=== PATIENT | male | born 1970 | race Caucasian/White ===

== ENCOUNTER 2016-03-19 07:37 | Inpatient (IN) | payer BC ==
[2016-03-19] MEDS ORDERED: ASPIRIN 325 MG TAB PO ONE (07:48)
[2016-03-19] MEDS ORDERED: ONDANSETRON 4 MG/2 ML VIAL IVP ONE (07:49)
[2016-03-19] MEDS ORDERED: NITROGLYCERIN 0.4 MG BTL SL ONE (07:53)
[2016-03-19] MEDS ORDERED: ASPIRIN 81 MG CHEWABLE TAB PO ONE (07:56)
--- NOTE | 2016-03-19 07:58 | EDPHY ---
H & P Stated Complaint: CP Time Seen by Provider: 03/19/16 07:48 HPI/ROS: CHIEF COMPLAINT: Chest pain HISTORY OF PRESENT ILLNESS: The patient is a 45 year old male presenting with acute onset of chest pain at 2:30am. The patient woke up with diffusely tight chest pain. His pain radiates into his arms, jaw, and back. He began to feel nauseous, went to take a shower, and started vomiting. His pain improves with sitting up. No clear relieving factors. No shortness of breath. No similar history of pain. Pain improved slightly on arrival to the emergency department especially the discomfort in his arms. His pain has slightly improved to a 5/10 now. The patient had a particularly stressful work week last week and took a long weekend. He has been feeling fine for the past few days. REVIEW OF SYSTEMS: Aside from elements discussed in the HPI, a comprehensive 10-point review of systems was reviewed and is negative. PAST MEDICAL HISTORY: Denies hypertension, diabetes, known coronary artery disease, high cholesterol. Family history: Father with PA at age 60. SOCIAL HISTORY: Nonsmoker. aws developer. VITAL SIGNS: Reviewed by me GENERAL: Well-developed, well-nourished, resting comfortably in no respiratory distress. HEENT: Atraumatic. Eyes: No icterus, no injection. Mouth: moist mucous membranes. No erythema or lesions. Neck: supple with no adenopathy. LUNGS: Clear to auscultation bilaterally, no wheezes, rhonchi or rales. CARDIAC: Slightly irregular, no rubs, murmurs or gallops. ABDOMEN: Soft, nontender, nondistended, bowel sounds normal. BACK: No CVA tenderness. EXTREMITIES: No trauma. No edema. Range of motion is normal throughout. NEURO: Alert and oriented, grossly nonfocal. SKIN: Warm and dry, no rash. PSYCHIATRIC: Normal mentation, no agitation. Portions of this note were transcribed by a hospitalist medical director. I personally performed a history, physical exam, medical decision making, and confirmed accuracy of information the transcribed note. - Personal History Current Tetanus/Diphtheria Vaccine: Yes - Medical/Surgical History Hx Asthma: No Hx Chronic Respiratory Disease: No Hx Diabetes: No Hx Cardiac Disease: No Hx Renal Disease: No Hx Cirrhosis: No Hx Alcoholism: No Hx HIV/AIDS: No Hx Splenectomy or Spleen Trauma: No Other PMH: DENIES - Social History Smoking Status: Never smoked Constitutional: Initial Vital Signs O2 Sat (%) 98 03/19/16 07:40 O2 Delivery Mode Room Air O2 (L/minute) 2 Allergies/Adverse Reactions: No Known Allergies Allergy (Unverified 03/19/16 07:40) Home Medications: Medication Instructions Recorded Multivitamins [Multivitamin (*)] 1 each PO DAILY 03/19/16 Medical Decision Making - Diagnostics EKG Interpretation: The 12 lead EKG was interpreted by myself. See hard copy and/or "tracemaster" electronic copy for interpretation: Abnormal T waves in lateral leads, minimal ST elevation in anterior leads, premature atrial complexes. Imaging: Study: X-ray of the chest was obtained. Results: No acute disease. Images were interpreted by the radiologist, Dr. Amin. I viewed the images myself on the PACS system. ED Course/Re-evaluation: The patient received 324mg Aspirin PO. Nitro and IV Zofran was ordered. Patient reports little improvement in his pain with the nitroglycerin. He received morphine. Patient's troponin is elevated at 0.197. Course was discussed with Jorge Estrada from [facility]. Repeat EKG shows no significant ischemic changes. Patient was evaluated by [facility] in the emergency department and was taken to the labor relations consultant. Differential Diagnosis: After history and physical examination, the differential for chest pain was considered, including but not limited to, myocardial ischemia, acute coronary syndrome, pulmonary embolus, chest wall pain, pleural inflammation and pulmonary infectious causes. - Data Points Laboratory Results: Laboratory Results 03/20/16 00:53 03/20/16 00:53 03/20/16 05:32 Creatine Kinase 1436 H IU/L (0-224) CK-MB (CK-2) Fraction 50.40 H ng/mL (0-3.19) CK-MB (CK-2) % 3.5 % (0.0-4.0) Creatine Kinase Interp NEGATIVE (NEGATIVE) Troponin I 26.700 H ng/mL (0-0.034) Medications Given: Discontinued Medications Aspirin (Aspirin) 325 mg PO EDNOW ONE Stop: 03/19/16 07:49 Last Admin: 03/20/16 07:06 Dose: Not Given Aspirin (Aspirin) 324 mg PO EDNOW ONE Stop: 03/19/16 07:57 Last Admin: 03/19/16 08:01 Dose: 324 mg Aspirin Buffered (Aspirin Ec) 325 mg PO ONCALL ONE Stop: 03/19/16 09:35 Last Admin: 03/19/16 11:24 Dose: Not Given Aspirin Buffered (Aspirin Ec) 325 mg PO ONCE ONE Stop: 03/19/16 11:14 Last Admin: 03/19/16 11:49 Dose: Not Given Diazepam (Valium) 5 mg PO ONCALL ONE Stop: 03/19/16 09:35 Last Admin: 03/19/16 11:17 Dose: Not Given Diphenhydramine HCl (Benadryl) 25 mg PO ONCALL ONE Stop: 03/19/16 09:35 Last Admin: 03/19/16 11:17 Dose: Not Given Morphine Sulfate (Morphine) 2 mg IVP EDNOW ONE Stop: 03/19/16 08:32 Last Admin: 03/19/16 08:32 Dose: 2 mg Nitroglycerin (Nitrostat) 0.4 mg SL EDNOW ONE Stop: 03/19/16 07:54 Last Admin: 03/19/16 08:01 Dose: 0.4 mg Ondansetron HCl (Zofran) 4 mg IVP EDNOW ONE Stop: 03/19/16 07:50 Last Admin: 03/19/16 11:11 Dose: Not Given Ticagrelor (Brilinta) 180 mg PO ONCE ONE Stop: 03/19/16 11:14 Last Admin: 03/19/16 11:49 Dose: Not Given Departure - Departure Disposition: [facility] Acute Clinical Impression: Acute coronary syndrome Condition: Serious Report Scribed for: Mague De Souza Report Scribed by: Anca Valentin Date of Report: 03/19/16 Time of Report: 08:03
--- NOTE | 2016-03-19 07:59 | CPEKG ---
Heart Rate: 90 RR Interval: 667 P-R Interval: 180 QRSD Interval: 94 QT Interval: 376 QTC Interval: 460 P [place]: 37 QRS [place]: -24 T Wave [place]: 118 EKG Severity - ABNORMAL ECG - EKG Impression: SINUS RHYTHM EKG Impression: MULTIPLE ATRIAL PREMATURE COMPLEXES EKG Impression: BORDERLINE LEFT AXIS DEVIATION EKG Impression: ABNORMAL T, CONSIDER ISCHEMIA, LATERAL LEADS EKG Impression: MINIMAL ST ELEVATION, ANTERIOR LEADS Electronically Signed By: Mague De Souza 19-Mar-2016 15:12:39
[2016-03-19 08:07] LABS: % IMMATURE GRANULYOCYTES 0.3 % (0.0-1.1); ABSOLUTE IMMATURE GRANULOCYTES 0.03 10^3/uL (0.00-0.10); ADD DIFF? NO; ADD MORPH? NO; ADD SCAN? NO; ATYPICAL LYMPHOCYTE FLAG 0 (0-99); FRAGMENT RBC FLAG 0 (0-99); HEMATOCRIT 44.4 % (40.0-51.0); HEMOGLOBIN 15.3 g/dL (13.7-17.5); LEFT SHIFT FLG 0 (0-99); LIPEMIA HEMOLYSIS FLAG 90 (0-99); MEAN CELL HEMOGLOBIN 31.8 pg (27.9-34.1); MEAN CELL HEMOGLOBIN CONCENTR. 34.5 g/dL (32.4-36.7); MEAN CELL VOLUME 92.3 fL (81.5-99.8); MEAN PLATELET VOLUME 9.4 fL (8.7-11.7); PLATELET CLUMPS FLAG 0 (0-99); PLATELET COUNT 228 10^3/uL (150-400); RED BLOOD CELL COUNT 4.81 10^6/uL (4.40-6.38); RED CELL DISTRIBUTION WIDTH 12.5 % (11.5-15.2)
[2016-03-19 08:34] LABS: ALANINE AMINOTRANSFERASE 80 IU/L (21-72); ALBUMIN 4.2 g/dL (3.5-5.0); ALKALINE PHOSPHATASE 52 IU/L (38-126); ANION GAP 12 mEq/L (8-16); ASPARTATE AMINOTRANSFERASE 59 IU/L (17-59); BILIRUBIN,TOTAL 0.7 mg/dL (0.1-1.4); BILIRUBIN-CONJUGATED 0.2 mg/dL (0.0-0.5); BILIRUBIN-UNCONJUGATED 0.5 mg/dL (0.0-1.1); CALCIUM 9.4 mg/dL (8.5-10.4); CARBON DIOXIDE 25 mEq/l (22-31); CHLORIDE 106 mEq/L (97-110); CREATININE 0.8 mg/dL (0.7-1.3); GLOMERULAR FILTRATION RATE > 60; GLUCOSE 119 mg/dL (70-100); POTASSIUM 4.3 mEq/L (3.5-5.2); SODIUM 143 mEq/L (134-144); TOTAL PROTEIN 7.4 g/dL (6.3-8.2)
[2016-03-19 08:52] LABS: TROPONIN I 0.197 ng/mL (0-0.034)
--- NOTE | 2016-03-19 09:05 | CPEKG ---
Heart Rate: 70 RR Interval: 857 P-R Interval: 172 QRSD Interval: 90 QT Interval: 400 QTC Interval: 432 P [place]: 23 QRS [place]: -27 T Wave [place]: 77 EKG Severity - OTHERWISE NORMAL ECG - EKG Impression: SINUS RHYTHM EKG Impression: BORDERLINE LEFT AXIS DEVIATION EKG Impression: ST ELEV, PROBABLE NORMAL EARLY REPOL PATTERN Electronically Signed By: Mague De Souza 19-Mar-2016 15:12:15
--- NOTE | 2016-03-19 09:13 | DX ---
PA and lateral chest History: Chest pain for 7 hours. Comparison: None available. Findings: Lung volumes are low. The lungs are clear. There is no pneumothorax or pleural effusion. The heart and pulmonary vasculature are normal. Degenerative changes are present in the spine with mi ld anterior height reduction of several adjacent mid thoracic vertebral bodies, possibly congenital o r less likely posttraumatic. Impression: No acute findings in the chest.
[2016-03-19] MEDS ORDERED: TEMAZEPAM 15 MG CAP PO PRN (09:34)
[2016-03-19] MEDS ORDERED: DIAZEPAM 5 MG TAB PO ONE (09:34)
[2016-03-19] MEDS ORDERED: ACETAMINOPHEN 325 MG TAB PO PRN (09:34)
[2016-03-19] MEDS ORDERED: NITROGLYCERIN 0.4 MG BTL SL PRN (09:34)
[2016-03-19] MEDS ORDERED: ASPIRIN EC 325 MG TAB PO ONE ×2 (09:34→11:13)
[2016-03-19] MEDS ORDERED: diphenhydrAMINE 25 MG CAP PO ONE (09:34)
[2016-03-19] MEDS ORDERED: LIDOCAINE 1% 30 ML SDV ONE (09:36)
[2016-03-19] MEDS ORDERED: fentaNYL 100 MCG/2 ML INJ ONE ×2 (09:36→10:07)
[2016-03-19] MEDS ORDERED: HEPARIN 10,000 UNIT/10 ML MDV ONE (09:37)
[2016-03-19] MEDS ORDERED: IOPAMIDOL (ISOVUE-370) 150 ML BTL IV ONE ×2 (09:37→10:17)
[2016-03-19] MEDS ORDERED: MIDAZOLAM 2 MG/2 ML VIAL ONE ×2 (09:37→10:07)
[2016-03-19] MEDS ORDERED: VERAPAMIL 5 MG/2 ML VIAL ONE (09:37)
[2016-03-19] MEDS ORDERED: BIVALIRUDIN 250 MG/5 ML VIAL IV ONE (09:39)
[2016-03-19] MEDS ORDERED: NITROGLYCERIN 1,500 MCG/15 ML VIAL MISC ONE (09:44)
[2016-03-19] MEDS ORDERED: NS 1,000 ML IV SCH (09:45)
[2016-03-19] MEDS ORDERED: ATROPINE SULFATE 1 MG/10 ML SYR ONE (09:45)
[2016-03-19 09:58] LABS: CHOLESTEROL 253 mg/dL (140-200); CHOLESTEROL/HDL RATIO 4.96 RATIO (1.00-4.97); HIGH DENSITY LIPOPROTEIN 51 mg/dL (40-65); LDL/HDL RATIO 3.39 RATIO (1.00-3.64); LOW DENSITY LIPOPROTEIN 173 mg/dL (70-100); NON-HIGH DENSITY LIPOPROTEIN 202 mg/dL (90-129); TRIGLYCERIDE 149 mg/dL (40-150); VERY LOW DENSITY LIPOPROTEINS 29 mg/dL (8-25)
[2016-03-19] MEDS ORDERED: DOPamine/DEXTROSE/250 ML BAG IV ONE (10:18)
[2016-03-19] MEDS ORDERED: ONDANSETRON 4 MG/2 ML VIAL ONE (10:37)
[2016-03-19] MEDS ORDERED: TICAGRELOR 90 MG TAB PO ONE ×2 (10:47→11:13)
[2016-03-19] MEDS ORDERED: HYDROCODONE/APAP 5/325 TAB PO PRN (11:13)
[2016-03-19] MEDS ORDERED: ATROPINE SULFATE 1 MG/10 ML SYR IVP PRN (11:13)
[2016-03-19] MEDS ORDERED: OXYCODONE/APAP 5/325 TAB PO PRN (11:13)
[2016-03-19] MEDS ORDERED: ONDANSETRON 4 MG/2 ML VIAL IVP PRN (11:13)
--- NOTE | 2016-03-19 11:40 | GCON ---
[f rep st] CONSULTATION CARDIOLOGY CONSULTATION DATE OF CONSULTATION: 03/19/2016 REASON FOR CONSULTATION: Ongoing chest pressure. HISTORY OF PRESENT ILLNESS: The patient is a 45-year-old male reporting no significant history of coronary artery disease. 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 Reporting taking the day off on Saturday, taking a long weekend, reporting that he had been feeling fine Saturday and Saturday, going to bed with no problems. Reporting waking up this morning at 2:30 with a midsternal chest pressure that he reports with radiation into his arms and neck, initially reporting it at 7 to 8/10. He attempted to change positions, without any improvement in symptoms. He finally decided to get up, took a shower. At that point, he became nauseous, had a couple of episodes of emesis, and from that point he decided he should come to the Emergency Department for further evaluation. Upon arrival, initial electrocardiogram did show sub mm ST elevation in anterior septal leads with flattened to inverted T-waves in lateral leads. He was given 2 doses of sublingual nitroglycerin which he reported did partially relieve his symptoms, down to a 2/10, but at the time of my examination still reporting some chest heaviness midsternal with "tingling" in both arms. No further jaw pressure or pain. Initial troponin in the Emergency Department was 0.197. At that point, we were called for consultation. The patient reports he has been in his normal state of health. Denies of any recent fevers, chills, or night sweats. Denies of any history of hypertension, smoking history. Does not know what his cholesterol status is, and reports a significant family history of father having an TX in his late 50s/ early 60s. He denies of any palpitation, orthopnea, PND, edema, rapid weight gain, near-syncope or syncopal events. Denies of any symptoms suggestive of TIA or CVA. PAST MEDICAL HISTORY: Patient reports hernia. Genital herpes PAST SURGICAL HISTORY: Patient reports hernia repair surgery, right side, 3 years ago. SOCIAL HISTORY: He is a web software engineer. He is not . He is a nonsmoker. Occasional alcohol use. Denies of any illicit drug use. FAMILY HISTORY: Patient reports father with TX at age between early 50s/late 60s. Still alive. Reports 3 siblings that are still alive and well. Mother alive and well. ALLERGIES: Patient has no known drug allergies. MEDICATIONS: At home: The patient reports he is currently on no medications at home. REVIEW OF SYSTEMS: A 10-point review of systems was done on this patient. All negative, except as mentioned above. PHYSICAL EXAMINATION: GENERAL APPEARANCE: Medium-built, well-groomed, male. He is alert oriented to person, place, time, and situation. Appears to have mild discomfort with chest pressure. VITAL SIGNS: Blood pressure 147/98, heart rate 75, sinus rhythm with PACs. On the monitor, respirations 18, saturating 98% on 2 L nasal cannula. Temperature 36.9 degree Celsius. HEENT: Head is normocephalic. Lips and tongue are pink and moist. No signs of cyanosis. Conjunctivae pink. NECK: Trachea is midline, +2 carotid pulses bilateral, no auscultated bruits, no jugular vein distention. RESPIRATORY: Lungs are clear to auscultation, no rhonchi, rales or wheezes, no accessory muscle use, no intercostal muscle retraction noted. CARDIAC: Regular rate, regular rhythm. S1, S2. No S3, S4 rubs or murmurs noted. ABDOMEN: Soft, nontender, bowel sounds in 4 quadrants, no organomegaly, no palpable masses. SKIN: [place], warm, dry, no cyanosis, no clubbing, no peripheral edema. VASCULAR: +2 carotids bilateral, +2 radials bilateral, +2 posterior tibial pulses bilateral. NEURO: Cranial nerves II through XII grossly intact. LABORATORIES: WBC 11.28, hemoglobin 15.3, hematocrit of 44.4, platelet count 228. Sodium 143, potassium 4.3, chloride 106, CO2 25, BUN 7, creatinine 0.8, glucose 119. Calcium 9.4, total bilirubin 0.7, AST 59, ALT 80, alkaline phosphate 52. Troponin 0.197. Total protein 7.4, albumin 4.2. STUDIES: Initial electrocardiogram as mentioned above. Chest x-ray shows no acute cardiopulmonary distress. Repeated electrocardiogram after nitroglycerin: Sinus rhythm, Sub mm ST elevation in anterior leads, with more flattened lateral leads in comparison to arrival EKG.. ASSESSMENT AND PLAN: A 45-year-old male reporting onset of chest pressure with radiation to arms and jaw with reported episodes of nausea and diaphoresis, no significant cardiac risk factors, except father having myocardial infarction in his late 50s/early 60s. Abnormal electrocardiogram as mentioned above. Mildly positive troponin. At this time, after discussing with Dr. Dozier, it is felt best that the patient be further evaluated for cardiac ischemia by coronary angiogram. Risks and benefits of this procedure were explained to the patient. He verbalizes understanding and he is wanting to proceed. He has had nothing to eat, no solid food, since 8 o'clock last night. He has had 2 small doses of water, with which he reports he has vomited up. He will be take to the Cardiac Catheterization Laboratory urgently. Further recommendations will come post- testing. CODE STATUS: Patient reports he is a full code. Thank you for this consultation. We are glad to follow along with you. /[id number]/MODL MTDD
--- NOTE | 2016-03-19 11:42 | CPEKG ---
Heart Rate: 75 RR Interval: 800 P-R Interval: 168 QRSD Interval: 90 QT Interval: 400 QTC Interval: 447 P [place]: 48 QRS [place]: -42 T Wave [place]: 36 EKG Severity - ABNORMAL ECG - EKG Impression: SINUS RHYTHM EKG Impression: PROBABLE INFERIOR INFARCT EKG Impression: COMPARED TO EARLIER EKG AN INFERIOR INJURY PATTERN IS NOW NOTED Electronically Signed By: Filipe Lam 19-Mar-2016 19:52:54
--- NOTE | 2016-03-19 13:45 | CPIP ---
[f rep st] INVASIVE CARDIAC PROCEDURE DATE OF PROCEDURE: 03/19/2016 PROCEDURES: 1. Coronary angiography. 2. Left ventriculography. 3. Stenting of right coronary artery using Synergy drug-eluting stent. INDICATION: Acute coronary syndrome with elevated troponin and EKG changes. ACCESS: Patient was prepped and draped in sterile fashion. 1% lidocaine was used to anesthetize the right inguinal region. A 6-Wallisian introducer sheath was placed selectively into the right common fe moral artery via modified Seldinger technique. CORONARY ANGIOGRAPHY: A 6-Wallisian JL4 was advanced to the left main coronary artery and images obtain ed. The left main coronary artery bifurcated into an LAD and circumflex coronary arteries. The left main coronary artery appeared normal. The left anterior descending coronary artery had mild diffuse disease throughout with no significant flow limitation. In the midvessel, a myocardial bridge. Cou ld be seen. The first diagonal artery was a large vessel. The first diagonal artery had a proximal 50% stenosis present. The circumflex coronary artery was a large vessel, but was nondominant. The ci rcumflex coronary artery had a segmental 30-40% stenosis in the proximal segment. In addition, there is a single discrete 80% stenosis in the distal segment at the bifurcation of OM3, which is a sizabl e vessel. A 6-Wallisian JR4 was advanced to the right coronary artery and images obtained. The right c oronary artery is dominant. The right coronary artery was occluded in the midvessel. The distal ves cindy is being filled by collaterals from the left anterior descending coronary artery. LEFT VENTRICULOGRAPHY: A 6-Wallisian pigtail catheter was advanced in the left ventricle and images obt ained. Left ventricle was normal in size with normal systolic function. The estimated ejection frac tion is 55%. The inferior wall appeared to be akinetic. PERCUTANEOUS CORONARY INTERVENTION OF THE RIGHT CORONARY ARTERY: A 6-Wallisian JR4 was advanced to the right coronary artery and images obtained. Angiography confirmed the presence of a total occlusion i n the distal vessel. A Luge wire was placed in the distal vessel and position verified by angiograph y. A 2.0 x 12 Emerge balloon was used to pre-dilate the lesion. Followup angiography demonstrated T IMI-3 flow with significant residual stenosis. A 3.5 x 28 Synergy drug-eluting stent was then placed in the mid to distal vessel and deployed. Followup angiography demonstrated MARTY-3 flow with some p laque shifting more distally. A 3.5 x 24 Synergy drug-eluting stent was placed in the previously erna michelle stent, and placed towards the distal vessel and deployed. Followup angiography demonstrated MARTY -3 flow. No residual stenosis. The stents did not appear to be completely opposed in the proximal s egment. The proximal portions of the stent were postdilated with a 4.0 x 15 Quantum [place]. COMPLICATIONS: None. CONCLUSIONS: 1. Two-vessel coronary artery disease. 2. Normal left ventricular systolic function with inferior akinesis. 3. Status post successful percutaneous coronary intervention of the right coronary artery using a Sy nergy drug-eluting stent. 4. Consider staged percutaneous coronary intervention of the circumflex and obtuse marginal coronary artery when he is recovered from his acute event. /[id number]/MODL
--- NOTE | 2016-03-19 14:41 | GCON ---
[f rep st] CONSULTATION CRITICAL CARE CONSULTATION DATE OF CONSULTATION: 03/19/2016 HISTORY OF PRESENT ILLNESS: The patient is a 45-year-old male who has a family history of coronary artery disease, but has been having intermittent chest pain over the last week, waking him up at night. He attributed it to a lot of stress that has been going on in his job, until early this morning about 0230, he woke up with 7/10 substernal chest pain radiating to his arm and associated with some emesis. He came to the emergency department, had mild anterior ST elevations. He was given nitroglycerin. His chest pain did not completely resolve. His troponin was 0.197. Subsequently, he went to the cardiac finishing lab technician , where he was found to have RCA disease, and received 2 stents there, and it was otherwise normal. On return from the finishing lab technician to the ICU, he was in great condition, he said that his chest pain was nearly 100% resolved. He had no shortness of breath, no nausea at this time, no groin pain, and vital signs were quite stable. REVIEW OF SYSTEMS: Otherwise negative. PAST MEDICAL HISTORY: Includes only a remote hernia. PAST SURGICAL HISTORY: Hernia repair. SOCIAL HISTORY: He is a nonsmoker, drinks occasional alcohol, but no recreational drug use. FAMILY HISTORY: Includes a myocardial infarction in his father, in his 50s. OUTPATIENT MEDICATIONS: None. CURRENT MEDICATIONS: Include Tylenol p.r.n., Hurricane p.r.n., aspirin 81 mg daily , Lipitor 40 mg daily, morphine p.r.n., nitroglycerin p.r.n., Zofran p.r.n., Percocet p.r.n. PHYSICAL EXAMINATION: VITAL SIGNS: He was afebrile. Saturation was 97% on room air, respiratory rate 15, heart rate 85, blood pressure 124/70. GENERAL: He was awake, alert, in no apparent distress, and able to speak in full sentences without using accessory muscles of breathing. HEENT: Pupils were equally round, react to light, nonicteric and not injected. Mucous membranes were moist without erythema or exudate. NECK: Supple, without adenopathy or jugular vein distention. LUNGS: Breath sounds were clear to auscultation bilaterally without wheezes, rubs or rales. HEART: Regular rate and rhythm. I did not detect any rubs. ABDOMEN: Soft, nontender, nondistended, with normoactive bowel sounds and no hepatosplenomegaly. EXTREMITIES: No clubbing, cyanosis or edema. His right groin site, where his cath was, was clean and dry without evidence of hematoma. NEUROLOGICAL: Cursory exam was nonfocal, including cranial nerves and deep tendon reflexes. SKIN: Warm and dry without evidence of rash. OBJECTIVE DATA: Includes the EKG and troponin as described above. He had a normal chest x-ray. White count was 11.2, hematocrit was 44, platelets 228. Basic metabolic panel was normal. His total cholesterol was 253, LDL was 173. Lipase was normal. ASSESSMENT AND PLAN: Acute myocardial infarction, which has been treated appropriately, and will likely need long-term antiplatelet agents as well as statins. His blood pressure is normal. We had a thorough discussion about cardiac risk factors today, and to monitor for ongoing symptoms of pain, since his risk is higher. Of note, we did have a discussion briefly about sleep habits. He says that he sleeps reasonably well, though he has had some snoring in the past. He was uncertain about observed apneas, but no family history of sleep apnea such that he can watch for those symptoms and consider further evaluation with sleep study, since that is an additional risk factor. /[id number]/MODL MTDD
[2016-03-20 06:04] LABS: % IMMATURE GRANULYOCYTES 0.3 % (0.0-1.1); ABSOLUTE IMMATURE GRANULOCYTES 0.03 10^3/uL (0.00-0.10); ADD DIFF? NO; ADD MORPH? NO; ADD SCAN? NO; ATYPICAL LYMPHOCYTE FLAG 20 (0-99); FRAGMENT RBC FLAG 0 (0-99); HEMATOCRIT 44.8 % (40.0-51.0); HEMOGLOBIN 15.4 g/dL (13.7-17.5); LEFT SHIFT FLG 10 (0-99); LIPEMIA HEMOLYSIS FLAG 90 (0-99); MEAN CELL HEMOGLOBIN 31.6 pg (27.9-34.1); MEAN CELL HEMOGLOBIN CONCENTR. 34.4 g/dL (32.4-36.7); MEAN PLATELET VOLUME 9.4 fL (8.7-11.7); PLATELET CLUMPS FLAG 0 (0-99); PLATELET COUNT 205 10^3/uL (150-400); RED BLOOD CELL COUNT 4.87 10^6/uL (4.40-6.38); RED CELL DISTRIBUTION WIDTH 12.6 % (11.5-15.2)
[2016-03-20 06:19] LABS: ANION GAP 10 mEq/L (8-16); CALCIUM 9.4 mg/dL (8.5-10.4); CARBON DIOXIDE 25 mEq/l (22-31); CHLORIDE 106 mEq/L (97-110); CREATININE 0.8 mg/dL (0.7-1.3); GLOMERULAR FILTRATION RATE > 60; GLUCOSE 102 mg/dL (70-100); POTASSIUM 4.4 mEq/L (3.5-5.2); SODIUM 141 mEq/L (134-144)
--- NOTE | 2016-03-20 08:49 | CPEKG ---
Heart Rate: 73 RR Interval: 822 P-R Interval: 164 QRSD Interval: 82 QT Interval: 428 QTC Interval: 472 P [place]: 23 QRS [place]: -53 T Wave [place]: 110 EKG Severity - ABNORMAL ECG - EKG Impression: SINUS ARRHYTHMIA, RATE 53-80 EKG Impression: INFERIOR INFARCT, RECENT Electronically Signed By: Filipe Lam 21-Mar-2016 08:25:52
[2016-03-20] MEDS: ASPIRIN EC 81 MG TAB PO SCH (09:38)
[2016-03-20] MEDS: ATORVASTATIN CALCIUM 40 MG TAB PO SCH (09:38)
[2016-03-20] MEDS: TICAGRELOR 90 MG TAB PO SCH ×2 (09:38→20:56)
[2016-03-20 12:56] LABS: CK-MB INTERPRETATION NEGATIVE (NEGATIVE)
--- NOTE | 2016-03-20 16:34 | SOAPPROG ---
[facility] Progress Note Assessment/Plan: 1. IMI - Pt presented with an acute NSTEMI. He was found to have an occluded RCA and was treated with PCI using CARROLL. Peak CPK = 1436. LVEF = 55% with inferior hypokinesis. Pt denies symptoms of angina and CHF. No significant ventricular arrhythmias on monitoring. --> Continue asa, brilinta, and lipitor. --> Will start coreg 3.125 mg bid --> Echocardiogram in am 2. Hyperlipidemia - LDL = 173. Pt started on lipitor 40 mg daily. --> FLP and LFTs in 3 months. 3. HTN - BP well controlled with diet and exercise. Subjective: No chest pain No orthopnea or PND Pt ambulating with out difficulty. Multiple questions regarding condition. Objective: Vital Signs Temp Pulse Resp BP Pulse Ox 36.7 C 68 16 106/81 H 98 03/20/16 12:00 03/20/16 14:00 03/20/16 14:00 03/20/16 14:00 03/20/16 14:00 Laboratory Results 03/20/16 00:53 03/20/16 00:53 03/19/16 03/20/16 03/21/16 05:59 05:59 05:59 Intake Total 2300 Output Total 2400 Balance -100 Physical Exam - Physical Exam General Appearance: alert, no apparent distress Respiratory: lungs clear Cardiac/Chest: regular rate, rhythm Abdomen: normal bowel sounds, non-tender, soft Skin: normal color Extremities: other (No hematoma or echymosis.), No pedal edema Neuro/Psych: alert, oriented x 3 ICD10 Worksheet Patient Problems: Problems Problem Status Diagnosed Acute coronary syndrome Acute
[2016-03-20] MEDS: CARVEDILOL 3.125 MG TAB PO SCH (17:59)
[2016-03-21 05:40] VITALS: O2SAT 96
[2016-03-21 06:28] LABS: CK-MB INTERPRETATION NEGATIVE (NEGATIVE)
[2016-03-21 06:37] LABS: CREATINE KINASE-MB FRACTION 8.37 ng/mL (0-3.19)
[2016-03-21 07:17] VITALS: RESP 16; TEMP 98.1
[2016-03-21] MEDS: ATORVASTATIN CALCIUM 40 MG TAB PO SCH (09:20)
[2016-03-21] MEDS: ASPIRIN EC 81 MG TAB PO SCH (09:20)
[2016-03-21] MEDS: TICAGRELOR 90 MG TAB PO SCH (09:20)
[2016-03-21] MEDS: CARVEDILOL 3.125 MG TAB PO SCH (09:20)
--- NOTE | 2016-03-21 10:32 | ECHO ---
[id number] + + [address] : : [place] [address] : : [phone] + + Adult Echocardiographic Report + ------+ :Name: Alon MOON Date: 03/21/2016 08:03 AM : : Hospital Admission Number: [id number] Locatio n: 220: :: 1970 Gender: Male Height: 71 in : :Age: 45 yrs Race: WH Weight: 180 lb : :Reason For Study: IMI : : BSA: 2.0 meters 2 : :History: No previous : + ------+ MMode/2D Measurements & Calculations IVSd: 1.5 cm RVDd: 2.5 cm FS: 28.6 % LVOT diam: 1.9 cm LVPWd: 1.5 cm LVIDd: 3.5 cm EDV(Teich): LVOT area: LVIDs: 2.5 cm 49.3 ml 2.9 cm2 ESV(Teich): 21.6 ml EF(Teich): 56.1 % LVLd ap4: 8.0 cm SV(MOD-sp4): EDV(MOD-sp4): 35.0 ml 59.0 ml LVLs ap4: 6.4 cm ESV(MOD-sp4): 24.0 ml EF(MOD-sp4): 59.3 % Normal Measurement Values: + + :LVIDd (3.5-5.7cm) IVSd (0.6-1.1cm) LVPWd (0.6-1.1cm) Aortic Root (2.0-3.7cm)Left Atrium (1.5-4.0cm): :LV Vol(d) (76-115ml) LV Vol(s) (29-48ml) Ejec Fraction (50-65%)PV Jj (0.6- 1.2m/s) TV Jj (0.4-1.0m/s) : :MV E Jj (0.8-1.0m/s)MV A Jj (0.3-1.0m/s)LVOT Jj (0.7-1.2m/s) Asc Ao Jj ( 0.9-1.8m/s) : + + Doppler Measurements & Calculations MV E max jj: MV V2 max: Ao mean PG: LV V1 mean P.1 cm/sec 59.5 cm/sec 2.1 mmHg 1.7 mmHg MV A max jj: MV max PG: Ao V2 mean: LV V1 mean: 51.3 cm/sec 1.4 mmHg 67.5 cm/sec 58.4 cm/sec MV E/A: 1.4 MV V2 mean: Ao V2 VTI: 16.4 cm LV V1 VTI: 16.0 cm MV dec time: 41.1 cm/sec LINDSAY(I,D): 2.8 cm2 0.20 sec MV mean P.75 mmHg MV V2 VTI: 19.6 cm MVA(VTI): 2.4 cm2 MR max jj: SV(LVOT): 46.4 ml PA V2 max: TR max jj: 351.7 cm/sec 79.8 cm/sec 177.0 cm/sec MR max PG: PA max PG: TR max P.1 mmHg 2.6 mmHg 12.5 mmHg RAP systole: 5.0 mmHg RVSP(TR): 17.5 mmHg Left Ventricle The left ventricle is normal in size. There is mild concentric left ventricular hypertrophy. Ejection Fraction = 55-60%. The basilar and mid inferior segments are hypokinetic. Right Ventricle The right ventricle is normal size. The right ventricular systolic function is mildly reduced. Atria The left atrial size is normal. Right atrial size is normal. Mitral Valve The mitral valve is normal in structure and function. There is no mitral valve stenosis. There is mild mitral regurgitation. Tricuspid Valve The tricuspid valve is normal in structure and function. There is no tricuspid stenosis. There is mild tricuspid regurgitation. Right ventricular systolic pressure is normal. Aortic Valve The aortic valve is not well seen but appears trileaflet. There is no aortic stenosis. There is no aortic insufficiency. Pulmonic Valve The pulmonic valve is not well visualized. There is no pulmonic valvular stenosis. There is no pulmonic valvular regurgitation. Great Vessels The aortic root is normal size. Pericardium/Pleural trivial pericardial effusion. Conclusion A complete two-dimensional transthoracic echocardiogram was performed (2D, M-mode, Doppler and color flow Doppler). 1. The left ventricle is normal in size. The Ejection Fraction = 55-60%. The basilar and mid inferior segments are hypokinetic. 2. The mitral valve is normal in structure and function. There is mild mitral regurgitation. 3. The aortic valve is not well seen but appears trileaflet. There is no aortic stenosis. There is no aortic insufficiency. 4. Right ventricular systolic pressure is normal. 5. No old studies for comparison Final Reading Physician: El Dozier MD electronically signed on 03/21/2016 10:31 AM Ordering Physician: El Dozier Performed By: Araseli Thurston
[2016-03-21 11:41] VITALS: BP 111/81; PULSE 80
--- NOTE | 2016-03-21 12:22 | GDS ---
[f rep st] DISCHARGE SUMMARY DISCHARGE DIAGNOSES: 1. Acute coronary syndrome: Patient presented with an acute coronary syndrome associated with ongoi ng symptoms of chest pain and elevated troponin, and dynamic ST and T-wave changes. He was taken to the cardiac catheterization laboratory for risk stratification. Coronary angiography was notable for an occluded right coronary artery, as well as disease involving the distal circumflex coronary arter y. The patient was treated with percutaneous coronary intervention of his right coronary artery usin g PROMUS drug-eluting stent. His peak CPK was 1436. Left ventricular systolic function was preserve d at 55% with inferior hypokinesis. Patient's postprocedural course was uncomplicated. At the time of discharge, he denied symptoms of angina or congestive heart failure, and had no significant ventri cular arrhythmias on telemetry monitoring. Patient will be continued on aspirin, Brilinta, Lipitor, and Coreg. He will be scheduled for followup percutaneous coronary intervention of the circumflex co ronary artery. 2. Hyperlipidemia: Patient's LDL was 173 on admission. He was started on Lipitor 40 mg daily. He w ill be scheduled for FLP and LFTs in 3 months to evaluate therapy. 3. Hypertension: Patient's blood pressure was well controlled throughout the hospitalization. He w as able to tolerate the addition of Coreg without difficulty. SUMMARY OF PRESENTATION AND COURSE: The patient is a 45-year-old gentleman, who presented on with an acute coronary syndrome. Patient was having ongoing symptoms of chest discomfort, as wel l as dynamic ST and T-wave changes on his EKG. He was taken to the cardiac catheterization laborator y for risk stratification. Coronary angiography was notable for 2-vessel coronary disease involving the right coronary artery and circumflex coronary artery. The right coronary artery was felt to be t he culprit lesion based on the fact that it was totally occluded. Patient was treated with percutane ous coronary intervention of the right coronary artery with plans for staged percutaneous coronary in tervention of the circumflex coronary artery when his acute issues resolve as he is behaving more lik e an inferior ST-segment elevation myocardial infarction. Patient's postprocedural course was relati vely uncomplicated. He denied further symptoms of angina. He had no symptoms consistent with conges tive heart failure. Telemetry monitoring demonstrated no significant ventricular arrhythmias. Patiwillian nt was noted however, to have frequent premature atrial contractions, as well as a short run of supra ventricular tachycardia. Patient was started on appropriate medical therapy using aspirin, Brilinta, Lipitor, and Coreg. His blood pressure would not tolerate the addition of lisinopril. At the time o f discharge, patient was ambulating without difficulty and denied groin complications. PHYSICAL EXAM AT THE TIME OF DISCHARGE: GENERAL: Patient is resting comfortably in the bed. He did not appear to be in acute distress. VITALS: Temperature afebrile, pulse 82, blood pressure 96/55, respiratory rate 12, SaO2 96% on room air. LUNGS: Clear to auscultation bilaterally. CARDIOVASCULA R: Regular rate and rhythm, S1, S2. No murmurs, rubs, gallops appreciated. ABDOMEN: Soft, nontend er. Normoactive bowel sounds. EXTREMITIES: Right inguinal access site: No hematoma. No ecchymosi s. 2+ dorsalis pedis pulse and posterior tibial pulse. NEURO: Patient is awake, alert, and oriente d x3. LABORATORY: White blood cell count 10.02, hemoglobin 15.4, hematocrit 44,8, platelet count 205. Sod ium 141, potassium 4.4, chloride 106, CO2 was 25, BUN 8, creatinine 0.8. Peak CPK 1436, CPK at the t flower of discharge 657. DISCHARGE MEDICATIONS: Please see medicine reconciliation form. DISCHARGE INSTRUCTIONS: 1. Patient will be scheduled for staged percutaneous coronary intervention of the circumflex coronar y artery in approximately a 2-3 week period of time. 2. Patient will follow up with Dr. Dozier at [facility] in approximately 4 weeks' period of time. 3. Patient should call for groin complications as outlined at the time of discharge. 4. Patient should go to the emergency department for recurrent symptoms of angina. /[id number]/MODL
== END 2016-03-21 12:30 | disposition home or self-care (01) | DRG 247 ==
LOC: INTOOBSV 09:32 → F2N 11:20 → OBSVTOIN 03-20 16:30 → F2W 03-20 16:50
PROVIDERS: ADMIT Internal Medicine Cardiovascular Disease; ATTEND Internal Medicine Cardiovascular Disease
PROC: B2111ZZ Fluoroscopy of Multiple Coronary Arteries using Low Osmolar Contrast (ICD-10-PCS; principal; 2016-03-20)
PROC: 4A023N7 Measurement of Cardiac Sampling and Pressure, Left Heart, Percutaneous Approach (ICD-10-PCS; principal; 2016-03-20)
PROC: 027035Z Dilation of Coronary Artery, One Artery with Two Drug-eluting Intraluminal Devices, Percutaneous Approach (ICD-10-PCS; principal; 2016-03-20)
PROC: B2151ZZ Fluoroscopy of Left Heart using Low Osmolar Contrast (ICD-10-PCS; principal; 2016-03-20)
DX: I21.4 Non-ST elevation (NSTEMI) myocardial infarction (principal); E78.5 Hyperlipidemia, unspecified; I10 Essential (primary) hypertension
CPT/HCPCS: 96374; C1725; C1760; C1769; C1874; C1887; C9600; G0378; J0461; J0583; J1265; J1644; J2250; J2405; J3010; Q9967

== ENCOUNTER 2016-04-09 07:39 | Observation (INO) | payer BC ==
[2016-04-09] MEDS ORDERED: FAMOTIDINE 20 MG TAB PO ONE (07:44)
[2016-04-09] MEDS ORDERED: DIAZEPAM 5 MG TAB PO ONE (07:44)
[2016-04-09] MEDS ORDERED: diphenhydrAMINE 25 MG CAP PO ONE (07:44)
[2016-04-09] MEDS ORDERED: NS 1,000 ML IV ONE (07:44)
[2016-04-09] MEDS ORDERED: ASPIRIN EC 325 MG TAB PO ONE (07:44)
--- NOTE | 2016-04-09 08:07 | CPEKG ---
Heart Rate: 66 RR Interval: 909 P-R Interval: 180 QRSD Interval: 90 QT Interval: 436 QTC Interval: 457 P [place]: 30 QRS [place]: -48 T Wave [place]: -58 EKG Severity - ABNORMAL ECG - EKG Impression: SINUS RHYTHM EKG Impression: LAD, CONSIDER LEFT ANTERIOR FASCICULAR BLOCK EKG Impression: NONSPECIFIC T ABNORMALITIES, INFERIOR LEADS EKG Impression: MINIMAL ST ELEVATION, ANTERIOR LEADS Electronically Signed By: El Thurman 11-Apr-2016 08:36:52
[2016-04-09] MEDS ORDERED: ASPIRIN EC 81 MG TAB PO ONE (08:08)
[2016-04-09 08:21] LABS: % IMMATURE GRANULYOCYTES 0.2 % (0.0-1.1); ABSOLUTE IMMATURE GRANULOCYTES 0.01 10^3/uL (0.00-0.10); ADD DIFF? NO; ADD MORPH? NO; ADD SCAN? NO; ATYPICAL LYMPHOCYTE FLAG 10 (0-99); FRAGMENT RBC FLAG 0 (0-99); HEMATOCRIT 43.7 % (40.0-51.0); HEMOGLOBIN 15.1 g/dL (13.7-17.5); LEFT SHIFT FLG 0 (0-99); LIPEMIA HEMOLYSIS FLAG 90 (0-99); MEAN CELL HEMOGLOBIN 31.1 pg (27.9-34.1); MEAN CELL HEMOGLOBIN CONCENTR. 34.6 g/dL (32.4-36.7); MEAN CELL VOLUME 89.9 fL (81.5-99.8); MEAN PLATELET VOLUME 9.3 fL (8.7-11.7); PLATELET CLUMPS FLAG 0 (0-99); PLATELET COUNT 223 10^3/uL (150-400); RED BLOOD CELL COUNT 4.86 10^6/uL (4.40-6.38)
[2016-04-09 08:31] LABS: INR 0.97 (0.83-1.16); PROTIME(PATIENT) 12.8 SEC (12.0-15.0)
[2016-04-09] MEDS ORDERED: LIDOCAINE 1% 30 ML SDV ONE (08:46)
[2016-04-09] MEDS ORDERED: BIVALIRUDIN 250 MG/5 ML VIAL IV ONE (08:46)
[2016-04-09] MEDS ORDERED: NITROGLYCERIN 1,500 MCG/15 ML VIAL MISC ONE (08:46)
[2016-04-09] MEDS ORDERED: fentaNYL 100 MCG/2 ML INJ ONE ×2 (08:47→10:01)
[2016-04-09] MEDS ORDERED: MIDAZOLAM 2 MG/2 ML VIAL ONE ×2 (08:47→10:01)
[2016-04-09] MEDS ORDERED: IOPAMIDOL (ISOVUE 370) 100 ML BTL IV ONE (08:48)
[2016-04-09 08:56] LABS: ANION GAP 10 mEq/L (8-16); CALCIUM 9.7 mg/dL (8.5-10.4); CARBON DIOXIDE 24 mEq/l (22-31); CHLORIDE 108 mEq/L (97-110); CHOLESTEROL 140 mg/dL (140-200); CHOLESTEROL/HDL RATIO 3.68 RATIO (1.00-4.97); CREATININE 0.8 mg/dL (0.7-1.3); GLOMERULAR FILTRATION RATE > 60; GLUCOSE 104 mg/dL (70-100); HIGH DENSITY LIPOPROTEIN 38 mg/dL (40-65); LDL/HDL RATIO 2.05 RATIO (1.00-3.64); LOW DENSITY LIPOPROTEIN 78 mg/dL (70-100); MAGNESIUM 2.1 mg/dL (1.6-2.3); NON-HIGH DENSITY LIPOPROTEIN 102 mg/dL (90-129); POTASSIUM 4.3 mEq/L (3.5-5.2); SODIUM 142 mEq/L (134-144); TRIGLYCERIDE 124 mg/dL (40-150); VERY LOW DENSITY LIPOPROTEINS 24 mg/dL (8-25)
[2016-04-09] MEDS ORDERED: ONDANSETRON 4 MG/2 ML VIAL IVP PRN (10:44)
[2016-04-09] MEDS ORDERED: LORazepam 2 MG/ML INJ IVP PRN (10:44)
[2016-04-09] MEDS ORDERED: OXYCODONE/APAP 5/325 TAB PO PRN (10:44)
[2016-04-09] MEDS ORDERED: TEMAZEPAM 15 MG CAP PO PRN (10:44)
[2016-04-09] MEDS ORDERED: HYDROCODONE/APAP 5/325 TAB PO PRN (10:44)
[2016-04-09] MEDS ORDERED: ATROPINE SULFATE 1 MG/10 ML SYR IVP PRN (10:44)
[2016-04-09] MEDS ORDERED: NITROGLYCERIN 0.4 MG BTL SL PRN (10:44)
--- NOTE | 2016-04-09 10:48 | CPEKG ---
Heart Rate: 63 RR Interval: 952 P-R Interval: 184 QRSD Interval: 90 QT Interval: 452 QTC Interval: 463 P [place]: 29 QRS [place]: -42 T Wave [place]: -65 EKG Severity - ABNORMAL ECG - EKG Impression: SINUS RHYTHM EKG Impression: LEFT AXIS DEVIATION EKG Impression: ABNORMAL T, CONSIDER ISCHEMIA, DIFFUSE LEADS EKG Impression: BORDERLINE ST ELEVATION, ANTERIOR LEADS Electronically Signed By: El Thurman 11-Apr-2016 08:37:05
--- NOTE | 2016-04-09 12:34 | CPIP ---
[f rep st] INVASIVE CARDIAC PROCEDURE DATE OF PROCEDURE: 04/09/2016 PROCEDURES: 1. Coronary angiography. 2. Stenting of circumflex coronary artery with Synergy drug-eluting stent. INDICATION: Patient initially presented with an acute coronary syndrome and was found to have an occ luded right coronary artery, as well as high-grade disease involving the mid to distal circumflex cor onary artery. He was treated with percutaneous coronary intervention of his right coronary artery at that time. Despite medical management, patient has continued to have anginal type symptoms and was therefore brought in for percutaneous coronary intervention of the circumflex coronary artery. ACCESS: The patient was prepped and draped in the usual sterile fashion. 1% lidocaine was used to a nesthetize the right inguinal region. A 6-Samoan introducer sheath was placed selectively into the r ight common femoral artery via modified Seldinger technique. CORONARY ANGIOGRAPHY: A 6-Samoan EBU 3.5 was advanced to the left main coronary artery and images ob tained. The left main coronary artery bifurcated into an LAD and circumflex coronary arteries. The left main coronary artery appeared normal. The left anterior descending coronary artery had mild dif fuse disease throughout. In the midvessel, a myocardial bridge came be seen. The first diagonal kalen ry had a proximal 30% stenosis present. The circumflex coronary artery was a large vessel, but was n ondominant. Circumflex coronary artery had a proximal 50% stenosis present, as well as a mid to dist al 80% stenosis present. A 6-Samoan JR4 was advanced to the right coronary artery and images obtaine d. The right coronary artery is dominant. The right coronary artery had a proximal 30-40% stenosis present. In the midvessel, previously placed stents can be seen. The previously placed stents are w idely patent with no evidence of in-stent restenosis. PERCUTANEOUS CORONARY INTERVENTION OF THE CIRCUMFLEX CORONARY ARTERY: A 6-Samoan EBU 3.5 catheter wa s advanced to the left main coronary artery and images obtained. Angiography confirmed the presence of high-grade disease involving the proximal and mid to distal circumflex coronary arteries. A Luge wire was placed in the distal vessel and position verified by angiography. A 2.5 x 16 Synergy drug-e luting stent was placed in the mid to distal lesion and deployed. Followup angiography demonstrated MARTY-3 flow with incomplete stent expansion in the proximal portion of the stent. The proximal portio n of the stent was postdilated with a 2.5 x 12 noncompliant balloon. Followup angiography demonstrat ed MARTY-3 flow, no residual stenosis. The circumflex continuation branch is a small vessel. The cir cumflex continuation branch is approximately 1.5 mm in diameter. The circumflex continuation branch had an ostial 90% stenosis present with MARTY-3 flow. A 3.0 x 16 Synergy drug-eluting stent was then placed in the proximal vessel and postdilated at 16 atmospheres. Followup angiography demonstrated T IMI-3 flow, no residual stenosis. COMPLICATIONS: None. CONCLUSIONS: 1. Patent right coronary artery stents. 2. Status post successful stenting of the proximal and mid to distal circumflex coronary artery jessica Lawler drug-eluting stents. /[id number]/MODL
[2016-04-09] MEDS: CARVEDILOL 3.125 MG TAB PO SCH (18:27)
[2016-04-09] MEDS: TICAGRELOR 90 MG TAB PO SCH (22:31)
[2016-04-09 23:17] VITALS: TEMP 98.1
[2016-04-10 06:56] LABS: % IMMATURE GRANULYOCYTES 0.6 % (0.0-1.1); ABSOLUTE IMMATURE GRANULOCYTES 0.03 10^3/uL (0.00-0.10); ADD DIFF? NO; ADD MORPH? NO; ADD SCAN? NO; ATYPICAL LYMPHOCYTE FLAG 10 (0-99); FRAGMENT RBC FLAG 10 (0-99); HEMATOCRIT 43.3 % (40.0-51.0); HEMOGLOBIN 14.7 g/dL (13.7-17.5); LEFT SHIFT FLG 0 (0-99); LIPEMIA HEMOLYSIS FLAG 90 (0-99); MEAN CELL HEMOGLOBIN 31.5 pg (27.9-34.1); MEAN CELL HEMOGLOBIN CONCENTR. 33.9 g/dL (32.4-36.7); MEAN CELL VOLUME 92.7 fL (81.5-99.8); MEAN PLATELET VOLUME 9.7 fL (8.7-11.7); PLATELET CLUMPS FLAG 0 (0-99); PLATELET COUNT 183 10^3/uL (150-400); RED BLOOD CELL COUNT 4.67 10^6/uL (4.40-6.38); RED CELL DISTRIBUTION WIDTH 12.3 % (11.5-15.2)
[2016-04-10 07:02] LABS: ANION GAP 12 mEq/L (8-16); CALCIUM 9.4 mg/dL (8.5-10.4); CARBON DIOXIDE 24 mEq/l (22-31); CHLORIDE 107 mEq/L (97-110); CREATININE 0.8 mg/dL (0.7-1.3); GLOMERULAR FILTRATION RATE > 60; GLUCOSE 80 mg/dL (70-100); POTASSIUM 4.4 mEq/L (3.5-5.2); SODIUM 143 mEq/L (134-144)
[2016-04-10 07:46] VITALS: BP 106/59; PULSE 71; RESP 14; O2SAT 93
[2016-04-10] MEDS: TICAGRELOR 90 MG TAB PO SCH (08:43)
--- NOTE | 2016-04-10 08:59 | CPEKG ---
Heart Rate: 61 RR Interval: 984 P-R Interval: 172 QRSD Interval: 86 QT Interval: 444 QTC Interval: 448 P [place]: 30 QRS [place]: -54 T Wave [place]: -64 EKG Severity - ABNORMAL ECG - EKG Impression: SINUS RHYTHM EKG Impression: LAD, CONSIDER LEFT ANTERIOR FASCICULAR BLOCK EKG Impression: ABNORMAL T, CONSIDER ISCHEMIA, DIFFUSE LEADS EKG Impression: SUBTLE ST ELEVATION TO ANTERIOR/ANTEROSEPTAL LEADS Electronically Signed By: El Thurman 11-Apr-2016 08:37:36
[2016-04-10] MEDS ORDERED: MULTIVITAMINS 1 EACH TAB PO SCH (09:00)
[2016-04-10] MEDS ORDERED: ATORVASTATIN CALCIUM 40 MG TAB PO SCH (09:00)
[2016-04-10] MEDS ORDERED: ASPIRIN EC 81 MG TAB PO SCH (09:00)
[2016-04-10] MEDS: CARVEDILOL 3.125 MG TAB PO SCH (12:14)
--- NOTE | 2016-04-10 14:24 | GDS ---
[f rep st] DISCHARGE SUMMARY ADMISSION DIAGNOSES: 1. Coronary artery disease, with noted recent percutaneous coronary intervention with CARROLL implantations on March 19, to right coronary artery, with known still stenosis of circumflex and obtuse marginal, planned staged event. 2. Hypertension. 3. Hyperlipidemia. DISCHARGE DIAGNOSES: 1. Coronary artery disease, with known history of percutaneous coronary intervention of the right coronary artery as mentioned above, status post percutaneous coronary intervention. Placement of 2 drug-eluting stents (2.5 x 16 Synergy drug-eluting stent, and a 3.0 x 16 Synergy drug-eluting stent to the circumflex). 2. Hypertension. 3. Hyperlipidemia. PROCEDURES DONE DURING HOSPITALIZATION: 1. Electrocardiogram. 2. Diagnostic coronary catheterization. 3. Percutaneous coronary intervention of the circumflex as mentioned above. BRIEF HISTORY: Please see H and P. The patient is a 45-year-old male, who on March 19, was noted to have mild EKG changes, elevated troponin, and exertional angina, underwent coronary catheterization, finding severe 2 vessel disease. At that time, the right coronary artery was fixed, the dominant vessel , with 2 drug-eluting stents. He tolerated the procedure well. Had been started on anti-platelet therapy, beta blockers, and statin therapy, and discharged home. It was planned at that time of his discharge, to let him recover, and followup and have him undergo staged percutaneous coronary intervention of the circumflex system. HOSPITAL COURSE: Patient was admitted on April 09, to CV prep for procedure and taken to the cardiac catheterization lab. There he underwent a repeat diagnostic cardiac catheterization showing patent right coronary artery stents, LAD system. The left main appeared normal. The LAD had mild diffuse disease throughout, in the mid vessel. First diagonal had approximately 30% stenosis present. Circumflex coronary artery had a 50% stenosis with a mid to distal 80% stenosis. At that time, followed by percutaneous coronary intervention of the circumflex arteries, with a 2.5 x 16 and 3.0 x 16 Synergy drug-eluting stent. There were no complications. The patient was taken back to the CVC, and ultimately to the telemetry unit overnight. The patient reports overnight no chest pain or shortness of breath, no arrhythmias noted. He has been up and walking in the unit without any symptoms of lightheadedness, palpitations, near-syncope or syncopal events. PHYSICAL EXAMINATION: General Appearance: Medium build, well groomed, male. He is alert and oriented to person, place, time, situation, in no acute distress. VITAL SIGNS: Current vital signs are blood pressure of 106/ 59, heart rate of 71, respirations 14, saturating 93% on room air. Temperature 36.7 degree Celsius. HEENT: Head is normocephalic. Lips and tongue are pink and moist with no signs of cyanosis, conjunctivae pink. NECK: Trachea is midline, +2 carotid pulses bilateral. No auscultated bruits, no jugular vein distention. RESPIRATORY: Lungs clear to auscultation, no rhonchi, rales or wheezes. No accessory muscle use, no intercostal muscle retraction noted. CARDIAC: Regular rate, regular rhythm. S1, S2. No S3, S4, gallop or rub. No murmur noted. ABDOMEN: Soft, nontender, bowel sounds in 4 quadrants. No organomegaly and no palpable masses. SKIN: [place], warm, dry, no cyanosis, no clubbing. No peripheral edema. VASCULAR: +2 carotids bilateral, +2 radials bilateral, +1 posterior tibial and dorsal pedal pulses bilateral. GROIN SITE: Right groin site catheter insertion site, with no redness, swelling, drainage, ecchymosis, or hematoma. No auscultated bruit. NEURO: Cranial nerves 2-12 grossly intact. LABORATORY STUDIES: Laboratory studies drawn today showed WBC of 4.6, hemoglobin of 14.7, hematocrit 43.3, platelet count 183. Sodium 143, potassium 4.4, chloride 107, CO2 24, BUN 9, creatinine 0.8. Glucose 80, calcium 9.4. Studies: Coronary catheterization and percutaneous coronary intervention as mentioned above. Morning electrocardiogram shows sinus rhythm, left anterior fascicular block, inverted T-waves in inferolateral leads. DISCHARGE DISPOSITION: The patient being discharged home in stable condition. DISCHARGE MEDICATIONS: Please see discharge medication reconciliation sheet. Note that the patient will continue on current anti-platelet therapy of aspirin and Brilinta. He was continued on statin therapy. Patient reports since he has been started on carvedilol, he reports he has had ongoing fatigue issues, feeling that he can't work. I have spoken to Dr. Dozier, he would like to discontinue carvedilol at this time, and re-evaluate for another beta damian on his followup visit in 2 weeks. DISCHARGE INSTRUCTIONS: Post percutaneous coronary intervention discharge instructions were gone over with the patient, including medication compliance, infection control, activity restrictions, importance for bleeding precautions, and monitoring for signs of infection. At the time of discharge, patient verbalizes understanding, and reports no question. He does have a followup appointment in 2 weeks with Callie Dunbar, nurse practitioner at our practice, and in [address] Dozier. At the time of discharge patient verbalized understanding of all discharge instructions, has no questions. The patient will follow up as planned. Patient has been told that if any problems or concerns post discharge, he is to call our office or return to the hospital. Total time spent on discharge greater than 30 minutes. /[id number]/MODL MTDD
== END 2016-04-10 13:58 | disposition home or self-care (01) ==
LOC: FCATH 07:39 → F2W 10:38
PROVIDERS: ADMIT Internal Medicine Cardiovascular Disease; ATTEND Internal Medicine Cardiovascular Disease
PROC: 027035Z Dilation of Coronary Artery, One Artery with Two Drug-eluting Intraluminal Devices, Percutaneous Approach (ICD-10-PCS; principal; 2016-04-09)
DX: I25.119 Atherosclerotic heart disease of native coronary artery with unspecified angina pectoris (principal); E78.5 Hyperlipidemia, unspecified; I10 Essential (primary) hypertension; Z95.5 Presence of coronary angioplasty implant and graft
CPT/HCPCS: 92928; 93005; C1725; C1769; C1887; G0378; C1760; C1874; C9600; J0583; J1644; J2250; J3010; Q9967

== ENCOUNTER 2016-08-13 13:12 | Emergency (ER) | payer BC ==
[2016-08-13 13:27] VITALS: RESP 16
[2016-08-13] MEDS ORDERED: RABIES IMMUNE GLOBULIN 300 UNIT/2 ML VIAL IM ONE (13:53)
[2016-08-13] MEDS ORDERED: RABIES VACC, HUMAN DIPLOID/PF 2.5 UNIT VIAL (RABAVERT) IM ONE (13:53)
--- NOTE | 2016-08-13 13:53 | EDPHY ---
H & P Time Seen by Provider: 08/13/16 13:37 HPI/ROS: CHIEF COMPLAINT: Bat exposure HISTORY OF PRESENT ILLNESS: Patient awoke last night and saw a bat and landed on his foot. He had a similar thing happened the night before and woke up with very itchy left middle toe. REVIEW OF SYSTEMS: Noted other possible insect bites on left arm and chest over the past week otherwise no symptoms PAST MEDICAL HISTORY: Acute coronary syndrome on Plavix and aspirin General Appearance: Alert and conversant, cooperative. Insect bite on the left forearm. Otherwise normal. Emergency Department course/MDM: Patient qualifies for rabies vaccine given known direct contact with a bat. No other symptoms. Rabies immunoglobulin and vaccine discussed and consented. Discussed with Dr. Isreal Monreal at 1:56 p.m. will arrange further vaccine series and follow-up. Smoking Status: Never smoked Constitutional: Initial Vital Signs Temperature (C) 36.8 C 08/13/16 13:22 Heart Rate 89 08/13/16 13:22 Respiratory Rate 16 08/13/16 13:22 Blood Pressure 136/89 H 08/13/16 13:22 O2 Sat (%) 95 08/13/16 13:22 O2 Delivery Mode Room Air Allergies/Adverse Reactions: No Known Allergies Allergy (Unverified 03/19/16 07:40) Home Medications: Medication Instructions Recorded Multivitamins [Multivitamin (*)] 1 each PO DAILY 03/19/16 Aspirin EC [Aspirin EC 81 mg (*)] 81 mg PO DAILY #30 tab 03/21/16 Blood Thinner 08/13/16 MDM/Departure - MDM Medications Given: Discontinued Medications Rabies Immune Globulin (Imogam Rabies Ht 2ml) 1,700 unit IM .ONCE ONE Stop: 08/13/16 13:54 Last Admin: 08/13/16 15:37 Dose: 1,700 unit Rabies Vaccine Human Diploid Cell (Rabavert) 2.5 unit IM .ONCE ONE Stop: 08/13/16 13:54 Last Admin: 08/13/16 15:42 Dose: 2.5 unit - Depart Disposition: Home, Routine, Self-Care Clinical Impression: Exposure to bat without known bite Condition: Good Instructions: Rabies Vaccine (ED) Additional Instructions: Call [facility] today to arrange follow-up for further rabies vaccines this , next Saturday, and Saturday 2 weeks from now. Tell the clinic that you are an emergency department referral. Referrals: Isreal Monreal MD [Medical Doctor] - As per Instructions
[2016-08-13 15:50] VITALS: BP 123/89; PULSE 76; TEMP 97.2; O2SAT 97
== END 2016-08-13 15:51 | disposition home or self-care (01) ==
DX: Z20.3 Contact with and (suspected) exposure to rabies (principal); Z23 Encounter for immunization; Z79.82 Long term (current) use of aspirin

== ENCOUNTER → 2017-05-27 | Outpatient (CLI) | payer MEDICAID | LOC: BMCIMAGING 15:03 | PROVIDERS: ATTEND Internal Medicine | DX: M54.2 Cervicalgia (principal); Z83.49 Family history of other endocrine, nutritional and metabolic diseases | CPT/HCPCS: 76536-PO ==